=== PATIENT | male | born 1960 | race Caucasian/White ===

== ENCOUNTER 2019-09-22 10:22 | Emergency (ER) | payer BC, OTHER ==
[~2019-09-22] VITALS: Ht 175.3 cm; Wt 87.9 kg
[~2019-09-22 10:22] MED LIST: HYDR-3240 PO; OXYC-302 PO; [UNRECOGNIZED DRUG - REMARK]; antibiotic
[2019-09-22 10:41] VITALS: BP 148/88
[2019-09-22] MEDS ORDERED: KETOROLAC 30 MG/1 ML ONE (10:56)
[2019-09-22] MEDS ORDERED: KETOROLAC 30 MG/1 ML IM ONE (11:00)
--- NOTE | 2019-09-22 11:57 | NUR ---
Patient given discharge instructions and they have confirmed that they understand the instructions. Patient ambulatory with steady gait.
== END 2019-09-22 11:59 | disposition home or self-care (01) ==
LOC: ED 11:53
DX: G56.01 Carpal tunnel syndrome, right upper limb (principal); M25.531 Pain in right wrist
CPT/HCPCS: 29125; 73110; 96372; 99283; J1885